=== PATIENT | female | born 1965 | race Caucasian/White ===

== ENCOUNTER 2017-03-07 16:42 | Emergency (ER) | payer SELFPAY ==
[~2017-03-07] VITALS: Ht 154.9 cm; Wt 59.0 kg
[~2017-03-07 16:42] MED LIST: HYDR-971 PO
[2017-03-07] MEDS ORDERED: KETOROLAC 60 MG/2 ML INJ. IM ONE (17:30)
[2017-03-07] MEDS ORDERED: diphenhydrAMINE 50 MG/ML VIAL IM ONE (17:30)
[2017-03-07] MEDS ORDERED: ONDANSETRON ODT 4 MG TAB.RAPDIS. PO ONE (17:30)
--- NOTE | 2017-03-07 17:36 | PHYS DOC ---
Past Medical History Past Medical History: Diabetes-Type II, Migraines Past Surgical History: Cholecystectomy, , Hysterectomy Alcohol Use: None Drug Use: None Adult General Chief Complaint Chief Complaint: HEADACHE HPI HPI Patient is a 51 year old female who is brought to the ED by her with the complaint of headache since Friday. The patient does have a history of migraines. This is a typical headache for her. It's located on the left side of her face and head. It has just gotten worse instead of better. She's tried Tylenol and Advil, tried sleeping, no relief. She has run out of Imitrex which she used previously. The patient has developed some vomiting the last 2 or 3 days. She last vomited about 2 hours prior to presentation. She states she has only vomited 2 or 3 times and does not feel dehydrated. Patient currently has no PCP. Patient is a smoker. Chart review shows that the patient was seen here in the past for migraine headache and had IV Benadryl and Compazine without relief, then had IV Toradol and did get relief at that time. Review of Systems Review of Systems Constitutional: Denies fever or chills [] Eyes: Denies change in visual acuity, redness, or eye pain [] HENT: Denies nasal congestion or sore throat [] Respiratory: Denies cough or shortness of breath [] Cardiovascular: Denies chest pain GI: As in history of present illness : Denies dysuria or hematuria [] Musculoskeletal: Denies back pain or joint pain [] Integument: Denies rash or skin lesions [] Neurologic: As in history of present illness Current Medications Current Medications Current Medications Medications (Trade) Dose Ordered Sig/Eliel Start Time Stop Time Status Last Admin Dose Admin Diphenhydramine HCl (Benadryl) 25 mg 1X ONCE 03/07/17 17:30 03/07/17 17:31 DC 03/07/17 17:34 25 MG Ketorolac Tromethamine (Toradol Im) 60 mg 1X ONCE 03/07/17 17:30 03/07/17 17:31 DC 03/07/17 17:34 60 MG Ondansetron HCl (Zofran Odt) 4 mg 1X ONCE 03/07/17 17:30 03/07/17 17:31 DC 03/07/17 17:33 4 MG Allergies Allergies Allergies Coded Allergies Type Severity Reaction Last Updated Verified Penicillins Allergy Severe ANAPHYLAXIS 11/04/15 Yes codeine Allergy Severe ANAPHYLAXIS 11/04/15 Yes morphine Allergy Severe ANAPHYLAXIS 11/04/15 Yes Physical Exam Physical Exam Constitutional: Well developed, well nourished, no acute distress, non-toxic appearance. Alert, mentating normally. She is in a dark room but she is watching TV. Warm and dry. HENT: Normocephalic, atraumatic, bilateral external ears normal, oropharynx moist, no oral exudates, nose normal. [] Eyes: PERRLA, EOMI, conjunctiva normal, no discharge. [] Neck: Normal range of motion, supple, no stridor. [] Cardiovascular:Heart rate regular rhythm, no murmur [] Lungs & Thorax: Bilateral breath sounds clear to auscultation [] Skin: Warm, dry, no erythema, no rash. [] Extremities: No tenderness, no cyanosis, no clubbing, ROM intact, no edema. [] Neurologic: Alert and oriented X 3, normal motor function, no focal deficits noted. [] Current Patient Data Vital Signs Vital Signs Date Time Temp Pulse Resp B/P (MAP) Pulse Ox O2 Delivery O2 Flow Rate FiO2 03/07/17 17:57 81 16 99 03/07/17 17:00 98.3 135/82 (99) Room Air 98.3 EKG EKG [] Radiology/Procedures Radiology/Procedures [] Course & Med Decision Making Course & Med Decision Making Pertinent Labs and Imaging studies reviewed. (See chart for details) 51-year-old female presents with a migraine headache that is typical for her. She has had relief with Toradol in the past. We discussed options and she does not believe she needs any IV fluids. She would like to have a shot and go home. Her is driving. See instructions for plan. [] Dragon Disclaimer Dragon Disclaimer This electronic medical record was generated, in whole or in part, using a voice recognition dictation system. Departure Departure Impression: Primary Impression: Headache Disposition: HOME, SELF-CARE Condition: STABLE Referrals: NO PCP (PCP) Patient Instructions: Migraine Headache, [id number] Additional Instructions: Go straight home and go to bed in a dark quiet room and tried to sleep several hours to help sleep off the headache. No driving for 12 hours due to the medication you were given here in the ED. When you wake up, drink plenty of fluids. ANALISA ZHANG MD Mar 07, 2017 17:36
[2017-03-07 17:57] VITALS: BP 129/79
== END 2017-03-07 17:58 | disposition home or self-care (01) ==
LOC: ER 16:42
DX: R51 Headache (principal); E11.9 Type 2 diabetes mellitus without complications; G43.909 Migraine, unspecified, not intractable, without status migrainosus; Z88.0 Allergy status to penicillin; Z88.5 Allergy status to narcotic agent
CPT/HCPCS: 96372; 99284; J1200; J1885; Q0162

== ENCOUNTER 2018-10-09 13:58 | Emergency (ER) | payer SELFPAY ==
[~2018-10-09] VITALS: Ht 154.9 cm; Wt 63.5 kg
[~2018-10-09 13:58] MED LIST changes: +HYDR-3164 PO; -HYDR-971 PO
[2018-10-09 14:20] VITALS: BP 99/84
[2018-10-09] MEDS ORDERED: diphenhydrAMINE HCL 25 MG CAPSULE PO ONE (15:30)
[2018-10-09] MEDS ORDERED: PROCHLORPERAZINE 10 MG/2 ML VIAL. IM ONE (15:30)
[2018-10-09] MEDS ORDERED: KETOROLAC 60 MG/2 ML VIAL. IM ONE (15:30)
[2018-10-09] MEDS ORDERED: methylPREDNISolone SOD SUCC PF 125 MG/2 ML VIAL. IM ONE (15:30)
--- NOTE | 2018-10-09 15:30 | PHYS DOC ---
Past Medical History Past Medical History: Diabetes-Type II, Migraines, Pancreatitis Past Surgical History: Cholecystectomy, , Hysterectomy Alcohol Use: None Drug Use: None Adult General Chief Complaint Chief Complaint: HEADACHE HPI HPI Patient is a 53 year old female with a history of migraine headaches who presents to the ED today complaining of a throbbing 9 out of 10 left-sided migraine headache that began 2-3 days ago with photophobia and nausea. Patient states she has vomited a couple times today. Denies any fever. She is also complaining of photophobia. Patient states this is her normal migraine headache presentation. Patient denies this being the worst headache in her life. Review of Systems Review of Systems Constitutional: Denies fever or chills [] Eyes: Denies change in visual acuity, redness, or eye pain [] HENT: Denies nasal congestion or sore throat [] Respiratory: Denies cough or shortness of breath [] Cardiovascular: No additional information not addressed in HPI [] GI: Denies abdominal pain, nausea, vomiting, bloody stools or diarrhea [] : Denies dysuria or hematuria [] Musculoskeletal: Denies back pain or joint pain [] Integument: Denies rash or skin lesions [] Neurologic: Reports migraine headache, denies focal weakness or sensory changes [] All other systems were reviewed and found to be within normal limits, except as documented in this note. Current Medications Current Medications Current Medications Medications (Trade) Dose Ordered Sig/Eliel Start Time Stop Time Status Last Admin Dose Admin Diphenhydramine HCl (Benadryl) 25 mg 1X ONCE 10/09/18 15:30 10/09/18 15:31 10/09/18 15:17 25 MG Ketorolac Tromethamine (Toradol Im) 60 mg 1X ONCE 10/09/18 15:30 10/09/18 15:31 10/09/18 15:17 60 MG Methylprednisolone Sodium Succinate (SOLU-Medrol 125MG VIAL) 125 mg 1X ONCE 10/09/18 15:30 10/09/18 15:31 10/09/18 15:18 125 MG Prochlorperazine Edisylate (Compazine) 10 mg 1X ONCE 10/09/18 15:30 10/09/18 15:31 10/09/18 15:18 10 MG Allergies Allergies Allergies Coded Allergies Type Severity Reaction Last Updated Verified Penicillins Allergy Severe ANAPHYLAXIS 11/04/15 Yes codeine Allergy Severe ANAPHYLAXIS 11/04/15 Yes morphine Allergy Severe ANAPHYLAXIS 11/04/15 Yes Physical Exam Physical Exam Constitutional: Well developed, well nourished, no acute distress, non-toxic appearance. [] HENT: Normocephalic, atraumatic, bilateral external ears normal, oropharynx moist, no oral exudates, nose normal. [] Eyes: PERRLA, EOMI, conjunctiva normal, no discharge. [] Neck: Normal range of motion, no tenderness, supple, no stridor. [] Cardiovascular:Heart rate regular rhythm, no murmur [] Lungs & Thorax: Bilateral breath sounds clear to auscultation [] Abdomen: Bowel sounds normal, soft, no tenderness, no masses, no pulsatile masses. [] Skin: Warm, dry, no erythema, no rash. [] Back: No tenderness, no CVA tenderness. [] Extremities: No tenderness, no cyanosis, no clubbing, ROM intact, no edema. [] Neurologic: Alert and oriented X 3, normal motor function, normal sensory function, no focal deficits noted. Cranial nerves II through XII intact Psychologic: Affect normal, judgement normal, mood normal. [] Current Patient Data Vital Signs Vital Signs Date Time Temp Pulse Resp B/P (MAP) Pulse Ox O2 Delivery O2 Flow Rate FiO2 10/09/18 14:20 98.1 97 20 99/84 (89) 100 Room Air 98.1 EKG EKG [] Radiology/Procedures Radiology/Procedures [] Course & Med Decision Making Course & Med Decision Making Pertinent Labs and Imaging studies reviewed. (See chart for details) This is a 53-year-old female patient presented to the ED today with a migraine headache for 2-3 days.Patient is in no distress, she states the current migraine headache is consistent with her normal migraines. Her blood pressure was running at 99/84. Patient states this is her normal blood pressure, she states she runs low. Patient is in no distress she was given migraine cocktail in the ED, discharged to home. Follow-up with PCP in 1-2 weeks. Provided neurologist for follow-up as well. Dragon Disclaimer Dragon Disclaimer This electronic medical record was generated, in whole or in part, using a voice recognition dictation system. Departure Departure Impression: Primary Impression: Migraine headache Disposition: HOME, SELF-CARE Condition: STABLE Referrals: NO PCP (PCP) IRWIN ASHRAF MD follow up in 1-2 weeks Patient Instructions: Migraine Headache, [id number] Additional Instructions: You were evaluated in the emergency room for migraine headache. We recommend you follow-up with your doctor in the next 1-2 weeks. Come back to the ED at any point symptoms worsen. Scripts Ondansetron Hcl (ZOFRAN) 4 Mg Tablet 1 TAB PO Q6HRS, #20 TAB Prov: MARI MCNEILL APRN 10/09/18 Problem Qualifiers Primary Impression: Migraine headache Migraine type: unspecified Status migrainosus presence: without status migrainosus Intractability: not intractable Qualified Codes: G43.909 - Migraine, unspecified, not intractable, without status migrainosus MARI MCNEILL APRN October 09, 2018 15:30
[2018-10-09] MEDS ORDERED: ONDA4TAB7 PO (15:34)
== END 2018-10-09 15:44 | disposition home or self-care (01) ==
LOC: ER 13:58
DX: G43.909 Migraine, unspecified, not intractable, without status migrainosus (principal); R11.2 Nausea with vomiting, unspecified; H53.149 Visual discomfort, unspecified; E11.9 Type 2 diabetes mellitus without complications; Z90.49 Acquired absence of other specified parts of digestive tract; Z90.710 Acquired absence of both cervix and uterus; Z98.890 Other specified postprocedural states; Z88.0 Allergy status to penicillin; Z88.5 Allergy status to narcotic agent
CPT/HCPCS: 96372; 99284; J0780; J1885; J2930; Q0163